=== PATIENT | female | born 1980 | race Hispanic/Latino ===

== ENCOUNTER 2016-10-05 08:43 | Emergency (ER) | payer MEDICAID, OTHER ==
[2016-10-05 09:09] VITALS: PULSE 93; RESP 20; TEMP 98.8; O2SAT 96
[2016-10-05 09:50] VITALS: BP 102/61
--- NOTE | 2016-10-05 10:35 | C.PDOC ---
History Of Present Illness 36 yr old female presents to the ER with complaints of left thigh pain since yesterday. Patient states 2 days ago she ran for the first time for a while and now her thigh is bothering her. States the pain is made better with movement. Denies trauma, back pain, foot pain, weakness or numbness. Time Seen by Provider: 10/05/16 09:35 Chief Complaint (Nursing): Lower Extremity Problem/Injury History Per: Patient History/Exam Limitations: no limitations Onset/Duration Of Symptoms: Days (1) Past Medical History Reviewed: Historical Data, Nursing Documentation, Vital Signs Vital Signs: Last Vital Signs Temp 98.8 F 10/05/16 09:06 Pulse 93 H 10/05/16 09:06 Resp 20 10/05/16 09:06 BP 102/61 10/05/16 09:43 Pulse Ox 96 10/05/16 10:36 - Medical History PMH: Anxiety, Bipolar Disorder, Depression, Sexually Transmitted Disease (HERPES ) Family History: States: No Known Family Hx - Social History Hx Alcohol Use: Yes Hx Substance Use: Yes - Immunization History Hx Tetanus Toxoid Vaccination: No Hx Influenza Vaccination: No Hx Pneumococcal Vaccination: No Review Of Systems Except As Marked, All Systems Reviewed And Found Negative. Musculoskeletal: Positive for: Other ((+) Left thigh pain ). Negative for: Back Pain, Foot Pain Neurological: Negative for: Weakness, Numbness Physical Exam - Physical Exam Appears: Non-toxic, No Acute Distress Skin: Warm, Dry, No Rash Head: Atraumatic, Normacephalic Eye(s): bilateral: Normal Inspection, PERRL, EOMI Back: Normal Inspection, No CVA Tenderness Extremity: Normal ROM, No Calf Tenderness, Capillary Refill (<2), No Swelling Pulses: Left Dorsalis Pedis: Normal, Right Dorsalis Pedis: Normal Neurological/Psych: Oriented x3, Normal Speech, Normal Motor, Normal Sensation ED Course And Treatment O2 Sat by Pulse Oximetry: 96 Disposition - Disposition Referrals: Reece Silva, [Non-Staff] - Disposition: HOME/ ROUTINE Disposition Time: 09:30 Condition: GOOD Additional Instructions: Thank you for letting us take care of you today. Your provider was Dr. Bob. You were treated for thigh strain. The emergency medical care you received today was directed at your acute symptoms. If you were prescribed any medication, please fill it and take as directed. It may take several days for your symptoms to resolve. Return to the Emergency Department if your symptoms worsen, do not improve, or if you have any other problems. Please contact your doctor or call one of the physicians/clinics you have been referred to that are listed on the Patient Visit Information form that is included in your discharge packet. Bring any paperwork you were given at discharge with you along with any medications you are taking to your follow up visit. Our treatment cannot replace ongoing medical care by a primary care provider (PCP) outside of the emergency department. Thank you for allowing the [facility] team to be part of your care today. Gradually increase your exercise regimen and follow up with your doctor as needed. Instructions: Muscle Strain (ED) - Clinical Impression Clinical Impression: Muscle strain - Scribe Statement The provider has reviewed the documentation as recorded by the Cheryl Louis Provider Attestation: All medical record entries made by the Yajairaibbrenna were at my direction and personally dictated by me. I have reviewed the chart and agree that the record accurately reflects my personal performance of the history, physical exam, medical decision making, and the department course for this patient. I have also personally directed, reviewed, and agree with the discharge instructions and disposition.
== END 2016-10-05 10:00 | disposition home or self-care (01) ==
LOC: C.ER 08:43
DX: S76.912A Strain of unspecified muscles, fascia and tendons at thigh level, left thigh, initial encounter (principal); X58.XXXA Exposure to other specified factors, initial encounter; Y93.02 Activity, running; Y92.89 Other specified places as the place of occurrence of the external cause